=== PATIENT | male | born 1955 | race American Indian/Alaskan Native ===

== ENCOUNTER 2017-04-08 10:04 | Emergency (ER) | payer MEDICAID, OTHER ==
[2017-04-08 10:26] VITALS: BP 136/80
[2017-04-08] MEDS ORDERED: Insulin Detemir 100 Units/ML 3 ML Pen SUBCUT ONE (10:29)
--- NOTE | 2017-04-08 10:53 | EDM.PDOC ---
Scribed by Mariela Laird 04/08/17 1048 for Glynn Jasso MD ED HPI GENERAL MEDICAL PROBLEM - General Chief Complaint: Diabetic Complaint Stated Complaint: DIABETIC, NO MEDS, HIGH SUGAR Time Seen by Provider: 04/08/17 10:10 Source of Information: Reports: Patient, RN, RN Notes Reviewed History Limitations: Reports: No Limitations - History of Present Illness INITIAL COMMENTS - FREE TEXT/NARRATIVE: Out of insulin, was on Lantus 20 units q day. Denies any other complaints. Patient drove here from [place] to live with his aunt. Patient states he was essentially "down and out" in [place]. He had self discontinued all of her meds and insulin. He admits to recent methamphetamine use. Severity: Mild Improves with: Reports: None Worsens with: Reports: None Associated Symptoms: Reports: No Other Symptoms - Related Data Allergies Allergy/AdvReac Type Severity Reaction Status Date / Time No Known Allergies Allergy Verified 04/08/17 10:12 Home Meds: Home Meds Cilostazol 100 mg PO BID 04/08/17 [History] Insulin Glarg,Human.Rec.Analog [LantUS] 25 unit SUBCUT DAILY 04/08/17 [History] Past Medical History Cardiovascular History: Reports: Hypertension Respiratory History: Reports: Pneumonia, Recurrent Gastrointestinal History: Reports: Diverticulosis Psychiatric History: Reports: Other (See Below) (drug abuse (polysubstance) with meth as drug of choice.) Endocrine/Metabolic History: Reports: Diabetes, Type II (insulin dependent.) Hematologic History: Reports: Other (See Below) (Hep C, status post treatment.) - Past Surgical History GI Surgical History: Reports: Colon, EGD, Hernia, Abdominal ED ROS GENERAL - Review of Systems Review Of Systems: ROS reveals no pertinent complaints other than HPI. ED EXAM GENERAL NO PERIP PULSE - Physical Exam Exam: See Below Exam Limited By: No Limitations General Appearance: Thin Head: Atraumatic, Normocephalic Neck: Normal Inspection, Supple, Non-Tender, Full Range of Motion Respiratory/Chest: No Respiratory Distress, Lungs Clear, Normal Breath Sounds, No Accessory Muscle Use, Chest Non-Tender Cardiovascular: Normal Peripheral Pulses, Regular Rate, Rhythm, No Edema, No Gallop, No JVD, No Murmur, No Rub GI/Abdominal: Normal Bowel Sounds, Soft, Non-Tender, No Organomegaly, No Distention, No Abnormal Bruit, No Mass (Male) Exam: Deferred Rectal (Males) Exam: Deferred Back Exam: Normal Inspection, Full Range of Motion, NT Extremities: Normal Inspection, Normal Range of Motion, Non-Tender, Normal Capillary Refill, No Pedal Edema Neurological: Alert, Oriented, CN II-XII Intact, Normal Cognition, Normal Gait, Normal Reflexes, No Motor/Sensory Deficits Psychiatric: Normal Affect, Normal Mood Skin Exam: Warm, Dry, Intact, Normal Color, No Rash Course - Vital Signs Last Recorded V/S: Last Vital Signs Temp 36.9 C 04/08/17 10:13 Pulse 69 04/08/17 10:13 Resp 18 04/08/17 10:13 BP 136/80 04/08/17 10:13 Pulse Ox 100 04/08/17 10:13 - Orders/Labs/Meds Orders: Active Orders 24 hr Category Date Time Status Blood Glucose Check, Bedside [RC] ONETIME Care 04/08/17 10:36 Active Labs: Laboratory Tests 04/08/17 Range/Units 10:19 POC Glucose 175 H (70-105) mg/dl Meds: Medications Discontinued Medications Generic Name Dose Route Start Last Admin Trade Name Quanq PRN Reason Stop Dose Admin Insulin Detemir 15 unit 04/08/17 10:29 04/08/17 10:40 Levemir SUBCUT 04/08/17 10:30 15 units ONETIME ONE Administration Departure - Departure Time of Disposition: 10:31 Disposition: Home, Self-Care 01 Condition: Good Clinical Impression: Medication refill, History of diabetes mellitus, type II - Discharge Information Instructions: Type 2 Diabetes Mellitus, Adult Forms: ED Department Discharge Additional Instructions: RX: Lantus insulin pen. Establish with a primary care provider in clinic in the next week. Abstain from methamphetamine or substance abuse. - My Orders Last 24 Hours: My Active Orders 04/08/17 10:36 Blood Glucose Check, Bedside [RC] ONETIME - Assessment/Plan Last 24 Hours: My Active Orders 04/08/17 10:36 Blood Glucose Check, Bedside [RC] ONETIME I have read and agree with the documentation that has been completed regarding this visit. By signing this record, I attest that the documentation was completed in my physical presence and is an accurate record of the encounter.
== END 2017-04-08 10:56 | disposition home or self-care (01) ==
LOC: DL.ED 10:04
DX: Z76.0 Encounter for issue of repeat prescription (principal); E11.9 Type 2 diabetes mellitus without complications; I10 Essential (primary) hypertension; Z79.899 Other long term (current) drug therapy; Z79.4 Long term (current) use of insulin; Z87.01 Personal history of pneumonia (recurrent)
CPT/HCPCS: 82962; 96372; 99282; J1815

== ENCOUNTER 2017-04-09 02:00 | Emergency (ER) | payer MEDICAID, OTHER ==
[2017-04-09 02:12] VITALS: BP 135/96
--- NOTE | 2017-04-09 02:31 | EDM.PDOC ---
ED HPI GENERAL MEDICAL PROBLEM - General Chief Complaint: Abdominal Pain Stated Complaint: ABD PAIN Time Seen by Provider: 04/09/17 02:17 Source of Information: Reports: Patient History Limitations: Reports: No Limitations - History of Present Illness INITIAL COMMENTS - FREE TEXT/NARRATIVE: This 62 yo male patient reports to the ED for the 2nd time in 24 hours. This visit is due to diffuse abdominal pain. The patient reports he has been seen numerous times over the past couple of months with abdominal pain. The patient reports his most recent visit was in [place]. During that visit, the patient reports he was given pain medications, but he could not remember the other medications that he was given. The patient was given insulin on the initial visit in the ED with Dr. Jasso. The patient reports he has been diagnosed with diverticulitis and has recently had some endoscopic work done, but he has not followed up with his care. The patient denied any drug or alcohol use, but had admitted to meth use on his earlier visit. 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 Right Upper Abdomen Pain Score (Numeric/FACES): 10 - Related Data Allergies Allergy/AdvReac Type Severity Reaction Status Date / Time No Known Allergies Allergy Verified 04/09/17 02:13 Home Meds: Home Meds Cilostazol 100 mg PO BID 04/08/17 [History] Insulin Glarg,Human.Rec.Analog [LantUS] 25 unit SUBCUT DAILY 04/08/17 [History] Past Medical History Cardiovascular History: Reports: Hypertension Other Cardiovascular History: PAD Respiratory History: Reports: Pneumonia, Recurrent Gastrointestinal History: Reports: Diverticulosis Psychiatric History: Reports: Other (See Below) Endocrine/Metabolic History: Reports: Diabetes, Type II Hematologic History: Reports: Other (See Below) - Infectious Disease History Infectious Disease History: Reports: Hepatitis C - Past Surgical History GI Surgical History: Reports: Colon, EGD, Hernia, Abdominal Social & Family History - Family History Family Medical History: Noncontributory - Tobacco Use Smoking Status *Q: Current Every Day Smoker Years of Tobacco use: 40 Packs/Tins Daily: 0.5 - Caffeine Use Caffeine Use: Reports: Coffee - Alcohol Use Days Per Week of Alcohol Use: 4 Number of Drinks Per Day: 3 Total Drinks Per Week: 12 - Recreational Drug Use Recreational Drug Use: Yes Drug Use in Last 12 Months: Yes Recreational Drug Type: Reports: Methamphetamine Recreational Drug Use Frequency: Socially ED ROS GENERAL - Review of Systems Review Of Systems: ROS reveals no pertinent complaints other than HPI. ED EXAM, GI/ABD - Physical Exam Exam: See Below Exam Limited By: No Limitations General Appearance: Alert, WD/WN, Moderate Distress, Thin Eyes: Bilateral: Normal Appearance, EOMI Ears: Normal External Exam, Normal Canal, Hearing Grossly Normal, Normal TMs Nose: Normal Inspection, Normal Mucosa, No Blood Throat/Mouth: Normal Inspection, Normal Lips, Normal Teeth, Normal Gums, Normal Oropharynx, Normal Voice, No Airway Compromise Head: Atraumatic, Normocephalic Neck: Normal Inspection, Supple, Non-Tender, Full Range of Motion Respiratory/Chest: No Respiratory Distress, Lungs Clear, Normal Breath Sounds, No Accessory Muscle Use, Chest Non-Tender Cardiovascular: Normal Peripheral Pulses, Regular Rate, Rhythm, No Edema, No Gallop, No JVD, No Murmur, No Rub GI/Abdominal: Normal Bowel Sounds, Soft, Tenderness (diffuse tenderness) (Male) Exam: Deferred Rectal (Males) Exam: Deferred Back Exam: Normal Inspection, Full Range of Motion, NT Extremities: Normal Inspection, Normal Range of Motion, Non-Tender, Normal Capillary Refill, No Pedal Edema Neurological: Alert, Oriented, CN II-XII Intact, Normal Cognition, Normal Gait, Normal Reflexes, No Motor/Sensory Deficits Psychiatric: Depressed Mood, Flat Affect Skin Exam: Warm, Dry, Intact, Normal Color, No Rash Lymphatic: No Adenopathy Course - Vital Signs Last Recorded V/S: Last Vital Signs Temp 37.1 C 04/09/17 02:11 Pulse 106 H 04/09/17 02:11 Resp 20 04/09/17 02:11 BP 135/96 H 04/09/17 02:11 Pulse Ox 100 04/09/17 02:11 - Orders/Labs/Meds Orders: Active Orders 24 hr Category Date Time Status UA W/MICROSCOPIC [URIN] Stat Lab 04/09/17 02:21 Uncollected Sodium Chloride 0.9% [Normal Saline] 1,000 ml Med 04/09/17 02:32 Ordered IV .BOLUS Medication Orders Sodium Chloride (Normal Saline) 1,000 mls @ 999 mls/hr IV .BOLUS ONE Stop: 04/09/17 03:32 Last Admin: 04/09/17 02:37 Dose: 999 mls/hr Labs: Laboratory Tests 04/09/17 04/09/17 04/09/17 Range/Units 02:10 02:10 02:10 WBC 7.7 (5.0-10.0) 10^3/uL RBC 4.82 (4.6-6.2) 10^6/uL Hgb 14.4 (14.0-18.0) g/dL Hct 41.9 (40.0-54.0) % MCV 86.9 (80-100) fL MCH 29.9 (27.0-34.0) pg MCHC 34.4 (33.0-35.0) g/dL Plt Count 297 (150-450) 10^3/uL Neut % (Auto) 40.5 L (42.2-75.2) % Lymph % (Auto) 44.6 (20.5-50.1) % [place] % (Auto) 9.1 H (2-8) % Eos % (Auto) 5.2 H (1.0-3.0) % Baso % (Auto) 0.6 (0.0-1.0) % Sodium (135-145) mmol/L Potassium (3.6-5.0) mmol/L Chloride (101-111) mmol/L Carbon Dioxide (21.0-31.0) mmol/L Anion Gap BUN (7-18) mg/dL Creatinine (0.6-1.3) mg/dL Est Cr Clr Drug Dosing Estimated GFR (MDRD) BUN/Creatinine Ratio Glucose (74-105) mg/dL Calcium (8.4-10.2) mg/dl Total Bilirubin (0.2-1.0) mg/dL AST (10-42) IU/L ALT (10-60) IU/L Alkaline Phosphatase (42-121) IU/L Ammonia 27 (11-35) umol/L Total Protein (6.7-8.2) g/dl Albumin (3.2-5.5) g/dl Globulin Albumin/Globulin Ratio Amylase 51 (28-100) U/L Lipase 34 (22-51) U/L Urine Color (YELLOW) Urine Appearance (CLEAR) Urine pH (5.0-9.0) Ur Specific [place] (1.005-1.030) Urine Protein (NEGATIVE) Urine Glucose (UA) (NEGATIVE) Urine Ketones (NEGATIVE) Urine Occult Blood (NEGATIVE) Urine Nitrite (NEGATIVE) Urine Bilirubin (NEGATIVE) Urine Urobilinogen (0.2-1.0) mg/dL Ur Leukocyte Esterase (NEGATIVE) Urine Opiates Screen (NEGATIVE) Ur Oxycodone Screen (NEGATIVE) Urine Methadone Screen (NEGATIVE) Ur Barbiturates Screen (NEGATIVE) U Tricyclic Antidepress (NEGATIVE) Ur Phencyclidine Scrn (NEGATIVE) Ur Amphetamine Screen (NEGATIVE) U Methamphetamines Scrn (NEGATIVE) Urine MDMA Screen (NEGATIVE) U Benzodiazepines Scrn (NEGATIVE) Urine Cocaine Screen (NEGATIVE) U Marijuana (THC) Screen (NEGATIVE) Ethyl Alcohol < 5 mg/dL 04/09/17 04/09/17 04/09/17 Range/Units 02:10 02:40 02:40 WBC (5.0-10.0) 10^3/uL RBC (4.6-6.2) 10^6/uL Hgb (14.0-18.0) g/dL Hct (40.0-54.0) % MCV (80-100) fL MCH (27.0-34.0) pg MCHC (33.0-35.0) g/dL Plt Count (150-450) 10^3/uL Neut % (Auto) (42.2-75.2) % Lymph % (Auto) (20.5-50.1) % [place] % (Auto) (2-8) % Eos % (Auto) (1.0-3.0) % Baso % (Auto) (0.0-1.0) % Sodium 138 (135-145) mmol/L Potassium 4.0 (3.6-5.0) mmol/L Chloride 102 (101-111) mmol/L Carbon Dioxide 24.0 (21.0-31.0) mmol/L Anion Gap 16.0 BUN 14 (7-18) mg/dL Creatinine 0.8 (0.6-1.3) mg/dL Est Cr Clr Drug Dosing TNP Estimated GFR (MDRD) > 60 BUN/Creatinine Ratio 17.50 Glucose 186 H (74-105) mg/dL Calcium 9.5 (8.4-10.2) mg/dl Total Bilirubin 0.5 (0.2-1.0) mg/dL AST 28 (10-42) IU/L ALT 21 (10-60) IU/L Alkaline Phosphatase 55 (42-121) IU/L Ammonia (11-35) umol/L Total Protein 7.8 (6.7-8.2) g/dl Albumin 3.8 (3.2-5.5) g/dl Globulin 4.0 Albumin/Globulin Ratio 0.95 Amylase (28-100) U/L Lipase (22-51) U/L Urine Color Dark yellow (YELLOW) Urine Appearance Slightly cloudy (CLEAR) Urine pH 5.5 (5.0-9.0) Ur Specific [place] >= 1.030 (1.005-1.030) Urine Protein 30 H (NEGATIVE) Urine Glucose (UA) 250 H (NEGATIVE) Urine Ketones Trace H (NEGATIVE) Urine Occult Blood Negative (NEGATIVE) Urine Nitrite Negative (NEGATIVE) Urine Bilirubin Small H (NEGATIVE) Urine Urobilinogen 0.2 (0.2-1.0) mg/dL Ur Leukocyte Esterase Negative (NEGATIVE) Urine Opiates Screen Positive H (NEGATIVE) Ur Oxycodone Screen Negative (NEGATIVE) Urine Methadone Screen Negative (NEGATIVE) Ur Barbiturates Screen Negative (NEGATIVE) U Tricyclic Antidepress Negative (NEGATIVE) Ur Phencyclidine Scrn Negative (NEGATIVE) Ur Amphetamine Screen Positive H (NEGATIVE) U Methamphetamines Scrn Positive H (NEGATIVE) Urine MDMA Screen Positive H (NEGATIVE) U Benzodiazepines Scrn Positive H (NEGATIVE) Urine Cocaine Screen Negative (NEGATIVE) U Marijuana (THC) Screen Positive H (NEGATIVE) Ethyl Alcohol mg/dL Meds: Medications Generic Name Dose Route Start Last Admin Trade Name Freq PRN Reason Stop Dose Admin Sodium Chloride 1,000 mls @ 999 mls/hr 04/09/17 02:32 04/09/17 02:37 Normal Saline IV 04/09/17 03:32 999 mls/hr .BOLUS ONE Administration Discontinued Medications Generic Name Dose Route Start Last Admin Trade Name Freq PRN Reason Stop Dose Admin Lorazepam 1 mg 04/09/17 03:05 Ativan IVPUSH 04/09/17 03:06 ONETIME ONE - Re-Assessments/Exams Free Text/Narrative Re-Assessment/Exam: 04/09/17 03:07 The patient was advised of the lab results and the drug screen. The patient refused to have a CT scan of his abdomen/pelvis. An order was placed for IV Ativan to reduce any withdrawal symptoms. Departure - Departure Time of Disposition: 03:10 Disposition: Home, Self-Care 01 Condition: Fair Clinical Impression: Methamphetamine use, Mild opioid use disorder Abdominal pain Qualifiers: Abdominal location: generalized Qualified Code(s): R10.84 - Generalized abdominal pain - Discharge Information Instructions: Abdominal Pain, Adult, [id number], Stimulant Use Disorder- Methamphetamines, Opioid Withdrawal Forms: ED Department Discharge Care Plan Goals: The patient was advised of the examination and lab results during the visit. The patient was given IV fluids and IV Ativan while in the ED. The patient refused an abdominal CT. The patient was discharged with a script for Ativan ( 0.5 mg) #10 to take 1 by mouth every 6 hours. If the patient has any additional symptoms or concerns, the patient should follow-up with his primary care facility or return to the emergency department. - My Orders Last 24 Hours: My Active Orders 04/09/17 02:21 UA W/MICROSCOPIC [URIN] Stat 04/09/17 02:32 Sodium Chloride 0.9% [Normal Saline] 1,000 ml IV .BOLUS - Assessment/Plan Last 24 Hours: My Active Orders 04/09/17 02:21 UA W/MICROSCOPIC [URIN] Stat 04/09/17 02:32 Sodium Chloride 0.9% [Normal Saline] 1,000 ml IV .BOLUS
[2017-04-09] MEDS ORDERED: Sodium Chloride 0.9% 1,000 ML IV ONE (02:32)
[2017-04-09 02:39] LABS: CHLORIDE,CL 102 mmol/L (101-111); SODIUM,NA 138 mmol/L (135-145)
[2017-04-09] MEDS ORDERED: LORazepam 2 MG/ML Syringe IVPUSH ONE (03:05)
== END 2017-04-09 03:30 | disposition home or self-care (01) ==
LOC: DL.ED 02:00
DX: F15.90 Other stimulant use, unspecified, uncomplicated (principal); F11.90 Opioid use, unspecified, uncomplicated; R10.84 Generalized abdominal pain; Z79.84 Long term (current) use of oral hypoglycemic drugs; I10 Essential (primary) hypertension; E11.9 Type 2 diabetes mellitus without complications; Z87.01 Personal history of pneumonia (recurrent); I73.9 Peripheral vascular disease, unspecified; F17.210 Nicotine dependence, cigarettes, uncomplicated
CPT/HCPCS: 36415; 80053; 80305; 81001; 82140; 82150; 83690; 85025; 96361; 96374; 99284; G0480; J2060; J7030

== ENCOUNTER 2017-04-28 18:05 | Emergency (ER) | payer MEDICAID ==
[2017-04-28] MEDS ORDERED: Sodium Chloride 0.9% 1,000 ML IV ONE (18:54)
--- NOTE | 2017-04-28 18:54 | EDM.PDOC ---
<Wing Reyes - Last Filed: 04/28/17 19:25> ED HPI GENERAL MEDICAL PROBLEM - General Chief Complaint: Gastrointestinal Problem Stated Complaint: SEVERE ABD PAINS, [id number] Time Seen by Provider: 04/28/17 18:52 Source of Information: Reports: Patient History Limitations: Reports: No Limitations - History of Present Illness INITIAL COMMENTS - FREE TEXT/NARRATIVE: 62 yo male presents with abdominal pain x 1 days. States that he has a history of diverticulitis and this feels similar. Denies nausea/vomiting but states that he has diarrhea. no other complaints. Onset Date: 04/27/17 Duration: Getting Worse Location: Reports: Abdomen Quality: Reports: Sharp, Stabbing Severity: Severe Improves with: Reports: None Worsens with: Reports: None Associated Symptoms: Reports: No Other Symptoms Upper Abdominal Pain Score (Numeric/FACES): 9 - Related Data Allergies Allergy/AdvReac Type Severity Reaction Status Date / Time No Known Allergies Allergy Verified 04/28/17 18:24 Home Meds: Home Meds Insulin Glarg,Human.Rec.Analog [LantUS] 20 unit SUBCUT DAILY 04/08/17 [History] Celecoxib 200 mg PO DAILY 04/28/17 [History] Ciprofloxacin [Ciprofloxacin HCl] 500 mg PO BID 04/28/17 [History] traZODone 100 mg PO DAILY 04/28/17 [History] Past Medical History HEENT History: Reports: None Cardiovascular History: Reports: Hypertension Other Cardiovascular History: PAD Respiratory History: Reports: Pneumonia, Recurrent Gastrointestinal History: Reports: Diverticulosis Genitourinary History: Reports: None Musculoskeletal History: Reports: None Neurological History: Reports: None Psychiatric History: Reports: None Endocrine/Metabolic History: Reports: Diabetes, Type II Hematologic History: Reports: None Immunologic History: Reports: None Oncologic (Cancer) History: Reports: None Dermatologic History: Reports: None - Infectious Disease History Infectious Disease History: Reports: Hepatitis C - Past Surgical History Head Surgeries/Procedures: Reports: None GI Surgical History: Reports: Colon, EGD, Hernia, Abdominal Social & Family History - Family History Family Medical History: Noncontributory - Tobacco Use Smoking Status *Q: Current Every Day Smoker Years of Tobacco use: 20 Packs/Tins Daily: 0.5 Used Tobacco, but Quit: No - Caffeine Use Caffeine Use: Reports: Coffee - Alcohol Use Days Per Week of Alcohol Use: 4 Number of Drinks Per Day: 3 Total Drinks Per Week: 12 - Recreational Drug Use Recreational Drug Use: No Drug Use in Last 12 Months: Yes Recreational Drug Type: Reports: Methamphetamine Recreational Drug Use Frequency: Socially ED ROS GENERAL - Review of Systems Review Of Systems: ROS reveals no pertinent complaints other than HPI. ED EXAM, GI/ABD - Physical Exam Exam: See Below Exam Limited By: No Limitations General Appearance: Alert, WD/WN, No Apparent Distress Respiratory/Chest: No Respiratory Distress, Lungs Clear, Normal Breath Sounds, No Accessory Muscle Use, Chest Non-Tender Cardiovascular: Normal Peripheral Pulses, Regular Rate, Rhythm, No Edema, No Gallop, No JVD, No Murmur, No Rub GI/Abdominal Exam: Normal Bowel Sounds, Soft, No Organomegaly, No Distention, No Abnormal Bruit, No Mass, Pelvis Stable, Tender (diffusely ) Neurological: Alert, Oriented Skin Exam: Warm, Dry, Intact, Normal Color, No Rash Course - Vital Signs Last Recorded V/S: Last Vital Signs Temp 97.5 F 04/28/17 20:40 Pulse 89 04/28/17 20:40 Resp 19 04/28/17 20:40 BP 130/89 04/28/17 20:40 Pulse Ox 95 04/28/17 20:40 - Orders/Labs/Meds Orders: Active Orders 24 hr Category Date Time Status Saline Lock Insert [OM.PC] Stat Oth 04/28/17 18:54 Ordered Labs: Laboratory Tests 04/28/17 04/28/17 04/28/17 Range/Units 18:57 18:57 19:04 WBC 10.6 H (5.0-10.0) 10^3/uL RBC 4.89 (4.6-6.2) 10^6/uL Hgb 14.9 (14.0-18.0) g/dL Hct 43.2 (40.0-54.0) % MCV 88.3 (80-100) fL MCH 30.5 (27.0-34.0) pg MCHC 34.5 (33.0-35.0) g/dL Plt Count 241 (150-450) 10^3/uL Neut % (Auto) 51.1 (42.2-75.2) % Lymph % (Auto) 37.9 (20.5-50.1) % [place] % (Auto) 7.4 (2-8) % Eos % (Auto) 3.2 H (1.0-3.0) % Baso % (Auto) 0.4 (0.0-1.0) % Sodium (135-145) mmol/L Potassium (3.6-5.0) mmol/L Chloride (101-111) mmol/L Carbon Dioxide (21.0-31.0) mmol/L Anion Gap BUN (7-18) mg/dL Creatinine (0.6-1.3) mg/dL Est Cr Clr Drug Dosing mL/min Estimated GFR (MDRD) Glucose (74-105) mg/dL Calcium (8.4-10.2) mg/dl Total Bilirubin (0.2-1.0) mg/dL AST (10-42) IU/L ALT (10-60) IU/L Amylase (28-100) U/L Lipase (22-51) U/L Urine Color Yellow (YELLOW) Urine Appearance Clear (CLEAR) Urine pH 5.5 (5.0-9.0) Ur Specific [place] 1.025 (1.005-1.030) Urine Protein Negative (NEGATIVE) Urine Glucose (UA) Negative (NEGATIVE) Urine Ketones Negative (NEGATIVE) Urine Occult Blood Negative (NEGATIVE) Urine Nitrite Negative (NEGATIVE) Urine Bilirubin Negative (NEGATIVE) Urine Urobilinogen 0.2 (0.2-1.0) mg/dL Ur Leukocyte Esterase Negative (NEGATIVE) Urine RBC Not seen /HPF Urine WBC Not seen (0-5/HPF) /HPF Urine Mucus Rare /LPF Urine Opiates Screen Negative (NEGATIVE) Ur Oxycodone Screen Negative (NEGATIVE) Urine Methadone Screen Negative (NEGATIVE) Ur Barbiturates Screen Negative (NEGATIVE) U Tricyclic Antidepress Negative (NEGATIVE) Ur Phencyclidine Scrn Negative (NEGATIVE) Ur Amphetamine Screen Positive H (NEGATIVE) U Methamphetamines Scrn Negative (NEGATIVE) Urine MDMA Screen Negative (NEGATIVE) U Benzodiazepines Scrn Negative (NEGATIVE) Urine Cocaine Screen Negative (NEGATIVE) U Marijuana (THC) Screen Negative (NEGATIVE) 04/28/17 04/28/17 Range/Units 19:04 19:04 WBC (5.0-10.0) 10^3/uL RBC (4.6-6.2) 10^6/uL Hgb (14.0-18.0) g/dL Hct (40.0-54.0) % MCV (80-100) fL MCH (27.0-34.0) pg MCHC (33.0-35.0) g/dL Plt Count (150-450) 10^3/uL Neut % (Auto) (42.2-75.2) % Lymph % (Auto) (20.5-50.1) % [place] % (Auto) (2-8) % Eos % (Auto) (1.0-3.0) % Baso % (Auto) (0.0-1.0) % Sodium 136 (135-145) mmol/L Potassium 4.8 (3.6-5.0) mmol/L Chloride 100 L (101-111) mmol/L Carbon Dioxide 27.0 (21.0-31.0) mmol/L Anion Gap 13.8 BUN 22 H (7-18) mg/dL Creatinine 0.8 (0.6-1.3) mg/dL Est Cr Clr Drug Dosing 94.50 mL/min Estimated GFR (MDRD) > 60 Glucose 150 H (74-105) mg/dL Calcium 9.6 (8.4-10.2) mg/dl Total Bilirubin 0.2 (0.2-1.0) mg/dL AST 22 (10-42) IU/L ALT 23 (10-60) IU/L Amylase 75 (28-100) U/L Lipase 40 (22-51) U/L Urine Color (YELLOW) Urine Appearance (CLEAR) Urine pH (5.0-9.0) Ur Specific [place] (1.005-1.030) Urine Protein (NEGATIVE) Urine Glucose (UA) (NEGATIVE) Urine Ketones (NEGATIVE) Urine Occult Blood (NEGATIVE) Urine Nitrite (NEGATIVE) Urine Bilirubin (NEGATIVE) Urine Urobilinogen (0.2-1.0) mg/dL Ur Leukocyte Esterase (NEGATIVE) Urine RBC /HPF Urine WBC (0-5/HPF) /HPF Urine Mucus /LPF Urine Opiates Screen (NEGATIVE) Ur Oxycodone Screen (NEGATIVE) Urine Methadone Screen (NEGATIVE) Ur Barbiturates Screen (NEGATIVE) U Tricyclic Antidepress (NEGATIVE) Ur Phencyclidine Scrn (NEGATIVE) Ur Amphetamine Screen (NEGATIVE) U Methamphetamines Scrn (NEGATIVE) Urine MDMA Screen (NEGATIVE) U Benzodiazepines Scrn (NEGATIVE) Urine Cocaine Screen (NEGATIVE) U Marijuana (THC) Screen (NEGATIVE) Meds: Medications Discontinued Medications Generic Name Dose Route Start Last Admin Trade Name [place] PRN Reason Stop Dose Admin Hydromorphone HCl 1 mg 04/28/17 19:19 04/28/17 19:26 Dilaudid IVPUSH 04/28/17 19:20 1 mg ONETIME ONE Administration Sodium Chloride 1,000 mls @ 999 mls/hr 04/28/17 18:54 04/28/17 19:10 Normal Saline IV 04/28/17 19:54 999 mls/hr .BOLUS ONE Administration Iopamidol 100 ml 04/28/17 18:55 Isovue-300 (61%) IVPUSH 04/28/17 18:56 ONETIME ONE Iopamidol 75 ml 04/28/17 19:40 04/28/17 19:40 Isovue-300 (61%) IVPUSH 04/28/17 19:41 75 ml ONETIME ONE Administration Magnesium Citrate Confirm 04/28/17 20:34 Citrate Of Magnesia Administered 04/28/17 20:35 Dose 296 ml .ROUTE .STK-MED ONE Sodium Chloride 10 ml 04/28/17 18:54 04/28/17 19:57 Saline Flush FLUSH 10 ml ASDIRECTED PRN Administration Keep Vein Open Departure - Departure Disposition: Home, Self-Care 01 Clinical Impression: Positive urine drug screen Constipation Qualifiers: Constipation type: unspecified constipation type Qualified Code(s): K59.00 - Constipation, unspecified - Discharge Information Instructions: Constipation, Adult Forms: ED Department Discharge Additional Instructions: Magnesium Citrate one bottle tonight increase fluid and fiber in diet don't use drugs <Madison Bella - Last Filed: 04/29/17 02:15> Course - Radiology Interpretation Free Text/Narrative:: CT abdomen and pelvis with contrast: Moderate constipation - Re-Assessments/Exams Free Text/Narrative Re-Assessment/Exam: 04/29/17 02:14 Results of findings discussed with patient including positive drug screen. Departure - Departure Time of Disposition: 20:27 Condition: Good
[2017-04-28] MEDS ORDERED: Iopamidol 612 MG/ML 100 ML Bottle IVPUSH ONE (18:55)
[2017-04-28] MEDS ORDERED: HYDROmorphone 1 MG/ML Syringe IVPUSH ONE (19:19)
[2017-04-28] MEDS: Sodium Chloride 0.9% 10 ML Syringe FLUSH PRN ×2 (19:26→19:57)
[2017-04-28 19:30] LABS: CHLORIDE,CL 100 mmol/L (101-111); SODIUM,NA 136 mmol/L (135-145)
[2017-04-28] MEDS ORDERED: Iopamidol 612 MG/ML 75 ML Bottle IVPUSH ONE (19:40)
[2017-04-28] MEDS ORDERED: Magnesium Citrate Solution 296 ML Bottle PO ONE (20:34)
[2017-04-28] MEDS ORDERED: Magnesium Citrate Solution 296 ML Bottle ONE (20:34)
[2017-04-28 20:48] VITALS: BP 130/89
== END 2017-04-28 20:41 | disposition home or self-care (01) ==
LOC: DL.ED 18:05
DX: K59.00 Constipation, unspecified (principal); I10 Essential (primary) hypertension; E11.9 Type 2 diabetes mellitus without complications; F17.210 Nicotine dependence, cigarettes, uncomplicated; Z87.01 Personal history of pneumonia (recurrent); Z79.4 Long term (current) use of insulin; Z51.81 Encounter for therapeutic drug level monitoring; Z02.89 Encounter for other administrative examinations
CPT/HCPCS: 36415; 74177; 80048; 80305; 81001; 82150; 82247; 83690; 84450; 84460; 85025; 96361; 96374; 99284; J1170; J7030; J7050; Q9967; A9270-GY

== ENCOUNTER 2017-04-30 12:25 | Emergency (ER) | payer MEDICAID ==
[2017-04-30 13:17] LABS: CHLORIDE,CL 98 mmol/L (101-111); SODIUM,NA 136 mmol/L (135-145)
--- NOTE | 2017-04-30 13:20 | EDM.PDOC ---
ED HPI GENERAL MEDICAL PROBLEM - General Chief Complaint: Abdominal Pain Stated Complaint: AB PAIN Time Seen by Provider: 04/30/17 13:14 Source of Information: Reports: Patient History Limitations: Reports: No Limitations - History of Present Illness INITIAL COMMENTS - FREE TEXT/NARRATIVE: This patient returns to the ED with continued abdominal pain. The patient has been seen in the ED 2 days ago, seen in the [facility] 2 times since then and was sent to the ED from the [facility] today. This patient has been seen in the ED several times this month and numerous times in the [facility], but continues to have abdominal pain. The patient is scheduled for a GI consult on 05/13/17, but can not manage his pain. Onset Date: 04/08/17 Duration: Constant Location: Reports: Abdomen Quality: Reports: Ache, Sharp Severity: Severe Improves with: Reports: None Worsens with: Reports: None Middle Abdomen Pain Score (Numeric/FACES): 9 - Related Data Allergies Allergy/AdvReac Type Severity Reaction Status Date / Time No Known Allergies Allergy Verified 04/28/17 18:24 Home Meds: Home Meds Insulin Glarg,Human.Rec.Analog [LantUS] 20 unit SUBCUT DAILY 04/08/17 [History] Celecoxib 200 mg PO DAILY 04/28/17 [History] Ciprofloxacin [Ciprofloxacin HCl] 500 mg PO BID 04/28/17 [History] traZODone 100 mg PO DAILY 04/28/17 [History] Past Medical History HEENT History: Reports: None Cardiovascular History: Reports: Hypertension Other Cardiovascular History: PAD Respiratory History: Reports: Pneumonia, Recurrent Gastrointestinal History: Reports: Diverticulosis Genitourinary History: Reports: None Musculoskeletal History: Reports: None Neurological History: Reports: None Psychiatric History: Reports: None Endocrine/Metabolic History: Reports: Diabetes, Type II Hematologic History: Reports: None Immunologic History: Reports: None Oncologic (Cancer) History: Reports: None Dermatologic History: Reports: None - Infectious Disease History Infectious Disease History: Reports: Hepatitis C - Past Surgical History Head Surgeries/Procedures: Reports: None GI Surgical History: Reports: Colon, EGD, Hernia, Abdominal Social & Family History - Family History Family Medical History: Noncontributory - Tobacco Use Smoking Status *Q: Current Every Day Smoker Years of Tobacco use: 35 Packs/Tins Daily: 0.5 Used Tobacco, but Quit: No - Caffeine Use Caffeine Use: Reports: Coffee, Soda - Alcohol Use Days Per Week of Alcohol Use: 4 Number of Drinks Per Day: 8 Total Drinks Per Week: 32 - Recreational Drug Use Recreational Drug Use: Yes Drug Use in Last 12 Months: Yes Recreational Drug Type: Reports: Methamphetamine Recreational Drug Use Frequency: Socially ED ROS GENERAL - Review of Systems Review Of Systems: ROS reveals no pertinent complaints other than HPI. ED EXAM, GI/ABD - Physical Exam Exam: See Below Exam Limited By: No Limitations General Appearance: Alert, WD/WN, Moderate Distress, Thin Eyes: Bilateral: Normal Appearance, EOMI Ears: Normal External Exam, Normal Canal, Hearing Grossly Normal, Normal TMs Nose: Normal Inspection, Normal Mucosa, No Blood Throat/Mouth: Normal Inspection, Normal Lips, Normal Teeth, Normal Gums, Normal Oropharynx, Normal Voice, No Airway Compromise Head: Atraumatic, Normocephalic Neck: Normal Inspection, Supple, Non-Tender, Full Range of Motion Respiratory/Chest: No Respiratory Distress, Lungs Clear, Normal Breath Sounds, No Accessory Muscle Use, Chest Non-Tender Cardiovascular: Normal Peripheral Pulses, Regular Rate, Rhythm, No Edema, No Gallop, No JVD, No Murmur, No Rub GI/Abdominal Exam: Normal Bowel Sounds, No Organomegaly, No Distention, No Abnormal Bruit, No Mass, Pelvis Stable, Tender (diffuse ) (Male) Exam: Deferred Rectal (Males) Exam: Deferred Back Exam: Normal Inspection, Full Range of Motion, NT Extremities: Normal Inspection, Normal Range of Motion, Non-Tender, Normal Capillary Refill, No Pedal Edema Neurological: Alert, Oriented, CN II-XII Intact, Normal Cognition, Abnormal Gait (due to abdominal pain) Psychiatric: Anxious, Depressed Mood Skin Exam: Warm, Dry, Intact, Normal Color, No Rash Lymphatic: No Adenopathy Course - Vital Signs Last Recorded V/S: Last Vital Signs Temp 36.6 C 04/30/17 13:59 Pulse 96 04/30/17 13:59 Resp 22 H 04/30/17 13:59 BP 129/86 04/30/17 13:59 Pulse Ox 100 04/30/17 13:59 - Orders/Labs/Meds Orders: Active Orders 24 hr Category Date Time Status CULTURE BLOOD [BC] Stat Lab 04/30/17 12:41 Results CULTURE BLOOD [BC] Stat Lab 04/30/17 12:46 Received Acetaminophen [Tylenol] Med 04/30/17 15:16 Once 650 mg PO NOW ONE Blood Culture x2 Reflex Set [OM.PC] Stat Oth 04/30/17 12:27 Ordered Labs: Laboratory Tests 04/30/17 04/30/17 04/30/17 Range/Units 12:46 12:46 12:46 WBC 9.3 (5.0-10.0) 10^3/uL RBC 5.00 (4.6-6.2) 10^6/uL Hgb 15.0 (14.0-18.0) g/dL Hct 43.3 (40.0-54.0) % MCV 86.6 (80-100) fL MCH 30.0 (27.0-34.0) pg MCHC 34.6 (33.0-35.0) g/dL Plt Count 236 (150-450) 10^3/uL Neut % (Auto) 53.0 (42.2-75.2) % Lymph % (Auto) 36.5 (20.5-50.1) % Ward % (Auto) 7.9 (2-8) % Eos % (Auto) 2.3 (1.0-3.0) % Baso % (Auto) 0.3 (0.0-1.0) % Sodium 136 (135-145) mmol/L Potassium 4.3 (3.6-5.0) mmol/L Chloride 98 L (101-111) mmol/L Carbon Dioxide 26.0 (21.0-31.0) mmol/L Anion Gap 16.3 BUN 13 (7-18) mg/dL Creatinine 0.7 (0.6-1.3) mg/dL Est Cr Clr Drug Dosing 108.57 mL/min Estimated GFR (MDRD) > 60 BUN/Creatinine Ratio 18.57 Glucose 130 H (74-105) mg/dL Lactic Acid (0.5-2.2) mmol/L Calcium 9.9 (8.4-10.2) mg/dl Magnesium 2.3 (1.8-2.5) mg/dL Total Bilirubin 0.7 (0.2-1.0) mg/dL AST 22 (10-42) IU/L ALT 26 (10-60) IU/L Alkaline Phosphatase 40 L (42-121) IU/L Ammonia 5 L (11-35) umol/L Total Protein 8.3 H (6.7-8.2) g/dl Albumin 4.4 (3.2-5.5) g/dl Globulin 3.9 Albumin/Globulin Ratio 1.13 Amylase 71 (28-100) U/L Lipase 33 (22-51) U/L Urine Color (YELLOW) Urine Appearance (CLEAR) Urine pH (5.0-9.0) Ur Specific [place] (1.005-1.030) Urine Protein (NEGATIVE) Urine Glucose (UA) (NEGATIVE) Urine Ketones (NEGATIVE) Urine Occult Blood (NEGATIVE) Urine Nitrite (NEGATIVE) Urine Bilirubin (NEGATIVE) Urine Urobilinogen (0.2-1.0) mg/dL Ur Leukocyte Esterase (NEGATIVE) Urine RBC /HPF Urine WBC (0-5/HPF) /HPF Urine Mucus /LPF Salicylates < 4 Urine Opiates Screen (NEGATIVE) Ur Oxycodone Screen (NEGATIVE) Urine Methadone Screen (NEGATIVE) Acetaminophen < 10 Ur Barbiturates Screen (NEGATIVE) U Tricyclic Antidepress (NEGATIVE) Ur Phencyclidine Scrn (NEGATIVE) Ur Amphetamine Screen (NEGATIVE) U Methamphetamines Scrn (NEGATIVE) Urine MDMA Screen (NEGATIVE) U Benzodiazepines Scrn (NEGATIVE) Urine Cocaine Screen (NEGATIVE) U Marijuana (THC) Screen (NEGATIVE) Ethyl Alcohol < 5 mg/dL 04/30/17 04/30/17 04/30/17 Range/Units 12:46 12:51 12:51 WBC (5.0-10.0) 10^3/uL RBC (4.6-6.2) 10^6/uL Hgb (14.0-18.0) g/dL Hct (40.0-54.0) % MCV (80-100) fL MCH (27.0-34.0) pg MCHC (33.0-35.0) g/dL Plt Count (150-450) 10^3/uL Neut % (Auto) (42.2-75.2) % Lymph % (Auto) (20.5-50.1) % Ward % (Auto) (2-8) % Eos % (Auto) (1.0-3.0) % Baso % (Auto) (0.0-1.0) % Sodium (135-145) mmol/L Potassium (3.6-5.0) mmol/L Chloride (101-111) mmol/L Carbon Dioxide (21.0-31.0) mmol/L Anion Gap BUN (7-18) mg/dL Creatinine (0.6-1.3) mg/dL Est Cr Clr Drug Dosing mL/min Estimated GFR (MDRD) BUN/Creatinine Ratio Glucose (74-105) mg/dL Lactic Acid 1.6 (0.5-2.2) mmol/L Calcium (8.4-10.2) mg/dl Magnesium (1.8-2.5) mg/dL Total Bilirubin (0.2-1.0) mg/dL AST (10-42) IU/L ALT (10-60) IU/L Alkaline Phosphatase (42-121) IU/L Ammonia (11-35) umol/L Total Protein (6.7-8.2) g/dl Albumin (3.2-5.5) g/dl Globulin Albumin/Globulin Ratio Amylase (28-100) U/L Lipase (22-51) U/L Urine Color Yellow (YELLOW) Urine Appearance Clear (CLEAR) Urine pH 8.0 (5.0-9.0) Ur Specific [place] 1.015 (1.005-1.030) Urine Protein Negative (NEGATIVE) Urine Glucose (UA) Negative (NEGATIVE) Urine Ketones Negative (NEGATIVE) Urine Occult Blood Negative (NEGATIVE) Urine Nitrite Negative (NEGATIVE) Urine Bilirubin Negative (NEGATIVE) Urine Urobilinogen 0.2 (0.2-1.0) mg/dL Ur Leukocyte Esterase Negative (NEGATIVE) Urine RBC Not seen /HPF Urine WBC Not seen (0-5/HPF) /HPF Urine Mucus Rare /LPF Salicylates Urine Opiates Screen Negative (NEGATIVE) Ur Oxycodone Screen Negative (NEGATIVE) Urine Methadone Screen Negative (NEGATIVE) Acetaminophen Ur Barbiturates Screen Negative (NEGATIVE) U Tricyclic Antidepress Negative (NEGATIVE) Ur Phencyclidine Scrn Negative (NEGATIVE) Ur Amphetamine Screen Negative (NEGATIVE) U Methamphetamines Scrn Negative (NEGATIVE) Urine MDMA Screen Negative (NEGATIVE) U Benzodiazepines Scrn Negative (NEGATIVE) Urine Cocaine Screen Negative (NEGATIVE) U Marijuana (THC) Screen Negative (NEGATIVE) Ethyl Alcohol mg/dL Departure - Departure Time of Disposition: 15:17 Disposition: Home, Self-Care 01 Condition: Fair Clinical Impression: Abdominal pain Qualifiers: Abdominal location: generalized Qualified Code(s): R10.84 - Generalized abdominal pain - Discharge Information Instructions: Abdominal Pain, Adult, [id number] Forms: ED Department Discharge Care Plan Goals: The patient was advised of the examination, lab and x-ray results during the visit. The patient was given an oral dose of Tylenol. The patient was encouraged to stick to a BRAT diet (bananas, rice, applesauce and toast) over the next 48 hours. The patient should avoid high fat foods. If the patient has any additional symptoms or concerns, the patient should follow-up with his primary care facility. - My Orders Last 24 Hours: My Active Orders 04/30/17 12:27 Blood Culture x2 Reflex Set [OM.PC] Stat 04/30/17 12:41 CULTURE BLOOD [BC] Stat 04/30/17 12:46 CULTURE BLOOD [BC] Stat 04/30/17 15:16 Acetaminophen [Tylenol] 650 mg PO NOW ONE - Assessment/Plan Last 24 Hours: My Active Orders 04/30/17 12:27 Blood Culture x2 Reflex Set [OM.PC] Stat 04/30/17 12:41 CULTURE BLOOD [BC] Stat 04/30/17 12:46 CULTURE BLOOD [BC] Stat 04/30/17 15:16 Acetaminophen [Tylenol] 650 mg PO NOW ONE
[2017-04-30 13:22] LABS: ACETAMINOPHEN < 10
--- NOTE | 2017-04-30 13:40 | CR ---
Clinical history: 62-year-old male with abdominal pain who was reported on recent emergency CT scan abdomen (28 April) to have "moderate constipation". Follow-up please. Interpretation: Flat and upright plain films of the abdomen unremarkable. No appreciable abnormal stool concentrated . No foreign body, pathologic calcifications, abdominal soft tissue mass, or mechanical bowel obstruct ion. No free air. Lung bases clear. 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
[2017-04-30 14:00] VITALS: BP 129/86
[2017-04-30] MEDS ORDERED: Acetaminophen 325 MG Tab PO ONE (15:16)
== END 2017-04-30 15:29 | disposition home or self-care (01) ==
LOC: DL.ED 12:25
DX: R10.84 Generalized abdominal pain (principal); I10 Essential (primary) hypertension; E11.9 Type 2 diabetes mellitus without complications; F17.200 Nicotine dependence, unspecified, uncomplicated; Z79.899 Other long term (current) drug therapy; Z79.4 Long term (current) use of insulin
CPT/HCPCS: 36415; 74020; 80053; 80305; 81001; 82140; 82150; 82272; 83605; 83690; 83735; 85025; 87040; 99285; A9270; G0480